=== PATIENT | female | born 1965 | race Caucasian/White ===

== ENCOUNTER 2020-07-13 13:19 | Day surgery (SDC) | payer MEDICAID ==
[2020-07-13 15:06] LABS: BASOPHILS % (AUTO) 0.3 %; EOSINOPHILS % (AUTO) 0.1 %; HGB - HEMOGLOBIN 13.8 g/dL (12.0-16.0); LYMPHOCYTES # (AUTO) 0.5 10^3/uL (1.5-3.5); LYMPHOCYTES % (AUTO) 3.2 %; MEAN CORPUSCULAR HEMOGLOBIN 32.1 pg (27.0-31.0); MEAN CORPUSCULAR HGB CONC 34.4 g/dL (32.0-36.0); MEAN CORPUSCULAR VOLUME 93.3 fL (81.0-99.0); MEAN PLATELET VOLUME 9.9 fL (7.9-10.8); MONOCYTES # (AUTO) 0.7 10^3/uL (0.0-1.0); MONOCYTES % (AUTO) 4.5 %; NEUTROPHILS # (AUTO) 13.2 10^3/uL (1.5-6.6); NEUTROPHILS % (AUTO) 91.2 %; PLT - PLATELET COUNT 229 10^3/uL (130-450); RED CELL DISTRIBUTION WIDTH 12.1 % (12.0-15.0); WHITE BLOOD COUNT 14.5 x10^3/uL (4.8-10.8)
[2020-07-13 15:22] LABS: ALBUMIN 4.7 g/dL (3.2-5.5); ALBUMIN/GLOBULIN RATIO 1.3 (1.0-2.2); BILIRUBIN,TOTAL 1.9 mg/dL (0.2-1.0); CALCIUM 9.4 mg/dL (8.5-10.3); CREATININE 0.8 mg/dL (0.4-1.0); TOTAL PROTEIN 8.3 g/dL (6.7-8.2)
[2020-07-13] MEDS ORDERED: HYDROmorphone 1 MG/ML CARPUJECT IVP STA ×3 (16:16→19:50)
[2020-07-13] MEDS ORDERED: SODIUM CHLORIDE 0.9% 1,000 ML IV STA (16:16)
--- NOTE | 2020-07-13 16:24 | ED Physician Documentation ---
History of Present Illness - Stated complaint Stated Complaint: ABD PAIN, VOMITING - Chief complaint Chief Complaint: Abd Pain - History obtained from History obtained from: Patient - Additonal information Additional information: 55-year-old female presents to the emergency department for evaluation of acute onset right lower quadrant abdominal pain with associated vomiting. Began this morning when she woke up. She denies that the pain radiates. She has no flank pain hematuria or dysuria. She does have some rebound guarding and tenderness. It should be noted that patient denies any history of coronary artery disease. However she does have anginal-like symptoms secondary to enlarged cardiac muscle that can sometimes cause compression of the left anterior descending artery. She reports a coronany cath was clear. She denies any chest pain at this time Past surgical history includes left oophorectomy, intussusception and bilateral breast implants Past medical history unremarkable. Meds none Social: No tobacco infrequent EtOH Review of Systems Constitutional: denies: Fever, Chills Eyes: reports: Reviewed and negative Ears: reports: Reviewed and negative Nose: reports: Reviewed and negative Throat: reports: Reviewed and negative Cardiac: reports: Reviewed and negative Respiratory: reports: Reviewed and negative GI: reports: Abdominal Pain, Nausea, Vomiting. denies: Constipation, Diarrhea, Hematemesis : denies: Dysuria, Frequency, Hesitancy, Hematuria Skin: reports: Reviewed and negative Musculoskeletal: reports: Reviewed and negative Neurologic: reports: Reviewed and negative Psychiatric: reports: Reviewed and negative PD PAST MEDICAL HISTORY - Present Medications Home Medications: Ambulatory Orders Medication Instructions Recorded Confirmed No Known Home Medications 07/13/20 07/13/20 - Allergies Allergies/Adverse Reactions: Allergies Allergy/AdvReac Type Severity Reaction Status Date / Time No Known Drug Allergies Allergy Verified 07/13/20 13:31 PD ED PE EXPANDED - General General: Alert, No acute distress, Well developed/nourished - Neck Neck: Supple w/out meningeal sx. No: Stiff neck, Brudzinki's - Cardiac Cardiac: Regular Rate, Regular Rhythm, Radial strong equal, Pedal strong equal, Cap refill < 2 sec. No: Murmur Present - Respiratory Respiratory: Clear to ausultation vane. No: Distress, Labored - Abdomen Abdomen: Normal Bowel sounds, Tender to palpation, Rebound, Guarding, RLQ (Rebound tenderness right lower quadrant. Positive McBurney's. Positive psoas.) - Extremities Extremities: Normal - Neuro Neuro: Alert and Oriented X 3 Results - Vitals Vitals: Vital Signs - 24 hr 07/13/20 13:24 Temperature 36.8 C Heart Rate 109 H Respiratory 18 Rate Blood Pressure 114/48 L O2 Saturation 100 Oxygen O2 Source Room air - EKG (time done) 1649 Rate: Rate (enter#) (85) Rhythm: NSR [place]: Normal Intervals: Normal [place] QRS: Normal Ischemia: Non specific changes Compare to prior EKG: Old EKG unavailable Computer interpretation: Agree with computer - Labs Labs: Laboratory Tests 07/13/20 07/13/20 07/13/20 15:02 15:02 16:22 WBC 14.5 H RBC 4.30 Hgb 13.8 Hct 40.1 MCV 93.3 MCH 32.1 H MCHC 34.4 RDW 12.1 Plt Count 229 MPV 9.9 Neut # (Auto) 13.2 H Lymph # (Auto) 0.5 L Placer # (Auto) 0.7 Eos # (Auto) 0.0 Baso # (Auto) 0.0 Absolute Nucleated RBC 0.00 Nucleated RBC % 0.0 Sodium 137 Potassium 3.7 Chloride 102 Carbon Dioxide 25 Anion Gap 10.0 BUN 17 Creatinine 0.8 Estimated GFR (MDRD) 75 L Glucose 146 H Calcium 9.4 Total Bilirubin 1.9 H AST 25 ALT 25 Alkaline Phosphatase 70 Total Protein 8.3 H Albumin 4.7 Globulin 3.6 Albumin/Globulin Ratio 1.3 Lipase 26 Urine Color Urine Clarity Urine pH Ur Specific [place] 1.025 Urine Protein Urine Glucose (UA) Urine Ketones Urine Occult Blood Urine Nitrite Urine Bilirubin Urine Urobilinogen Ur Leukocyte Esterase Ur Microscopic Review Urine Culture Comments Urine HCG, Qual NEGATIVE 07/13/20 16:22 WBC RBC Hgb Hct MCV MCH MCHC RDW Plt Count MPV Neut # (Auto) Lymph # (Auto) Placer # (Auto) Eos # (Auto) Baso # (Auto) Absolute Nucleated RBC Nucleated RBC % Sodium Potassium Chloride Carbon Dioxide Anion Gap BUN Creatinine Estimated GFR (MDRD) Glucose Calcium Total Bilirubin AST ALT Alkaline Phosphatase Total Protein Albumin Globulin Albumin/Globulin Ratio Lipase Urine Color YELLOW Urine Clarity CLEAR Urine pH 6.0 Ur Specific [place] 1.025 Urine Protein NEGATIVE Urine Glucose (UA) NEGATIVE Urine Ketones 40 H Urine Occult Blood TRACE-INTA Urine Nitrite NEGATIVE Urine Bilirubin NEGATIVE Urine Urobilinogen 0.2 (NORMAL) Ur Leukocyte Esterase NEGATIVE Ur Microscopic Review NOT INDICATED Urine Culture Comments NOT INDICATED Urine HCG, Qual - Rads (name of study) CT abd Radiology: Final report received (Acute appendicitis. Appendix is quite dilated with likely impending rupture) PD MEDICAL DECISION MAKING - ED course Complexity details: reviewed results, re-evaluated patient, considered differential, d/w patient ED course: 55-year-old female presents the emergency department for evaluation of acute right lower quadrant abdominal pain that began this a.m. She has associated vomiting. 1710: Notified by radiologist that CT scan shows acute appendicitis with impending rupture. I spoke with Dr. Crowley on-call for surgery. He will be at the bedside shortly. Have ordered 3 g of Unasyn. Patient is n.p.o. Further IV pain medication ordered 1740: Dr. Crowley of surgery is at the bedside. Further care to be dictated by surgical team. Patient will be admitted to same-day surgery Departure - Departure Disposition: ED Transfer to [facility] Clinical Impression: Acute appendicitis Qualifiers: Acute appendicitis type: unspecified acute appendicitis type Qualified Code(s): K35.80 - Unspecified acute appendicitis
[2020-07-13] MEDS ORDERED: IOVERSOL 320 100 ML VIAL IVP ONE ×2 (16:32→17:04)
[2020-07-13 16:45] LABS: BILIRUBIN,URINE NEGATIVE (NEGATIVE); CLARITY,URINE CLEAR (CLEAR); GLUCOSE, URINE (UA) NEGATIVE (NEGATIVE); HCG UR QUAL NEGATIVE; KETONES,URINE (UA) 40 mg/dL (NEGATIVE); LEUKOCYTE ESTERASE, URINE NEGATIVE (NEGATIVE); NITRITE,URINE NEGATIVE (NEGATIVE); OCCULT BLOOD,URINE TRACE-INTA (NEGATIVE); PROTEIN,URINE NEGATIVE (NEGATIVE); UROBILINOGEN,URINE 0.2 (NORMAL) E.U./dL (NORMAL)
--- NOTE | 2020-07-13 17:08 | CT Report ---
PROCEDURE: Abdomen/Pelvis W INDICATIONS: Acute focal RLQ abd pain CONTRAST: IV CONTRAST: Optiray 320 ml: 100 PO CONTRAST: *NO PO CONTRAST TECHNIQUE: After the administration of intravenous contrast, 5 mm thick sections acquired from the diaphragms to the symphysis. 5 mm thick coronal and sagittal reformats were acquired. For radiation dose reducti on, the following was used: automated exposure control, adjustment of mA and/or kV according to shanna ent size. COMPARISON: None. FINDINGS: Image quality: Excellent. ABDOMEN: Lung bases: Lung bases are clear. Heart size is normal. Solid organs: Liver and spleen are normal in size and enhancement. Gallbladder is unremarkable Parker iary system is non dilated. Pancreas enhances normally. No adrenal nodules. Kidneys demonstrate no rmal size and enhancement, without hydronephrosis. Peritoneum and bowel: Appendix is markedly dilated and predominantly filled with fluid with mild infl ammatory change adjacent to the appendix. The appendix measures 1.4 cm in diameter. Findings are cons istent with acute appendicitis. Bowel loops otherwise demonstrate normal wall thickness and caliber. No free fluid or air. Nodes and vessels: No retroperitoneal or mesenteric adenopathy by size criteria. Aorta and inferior vena cava are normal in size. Miscellaneous: No ventral hernias. PELVIS: Genitourinary: Bladder wall thickness is normal. Miscellaneous: No inguinal hernias or adenopathy. Bones: No suspicious bony lesions. No vertebral body compression fractures. IMPRESSION: 1. Acute appendicitis. Appendix is quite dilated, with likely impending rupture. Above discussed with GIDEON GARCIA at the time of dictation on 07/13/2020 at 1706 hours. Reviewed by: Bhupinder Joya MD on 07/13/2020 5:06 PM PST Approved by: Bhupinder Joya MD on 07/13/2020 5:06 PM PST Station ID: [id number]
[2020-07-13] MEDS ORDERED: AMPICILLIN/SULBACTAM 3 GM in SODIUM CHLORIDE 0.9% MINIBAG 100 ML IV STA (17:10)
--- NOTE | 2020-07-13 19:16 | SURGERY HX AND PHYSICAL(T) ---
Surgical History & Physical - Chief Complaint/HPI Chief Complaint: Abdominal pain, concern for acute appendicitis History of Present Illness: 55-year-old female with past surgical history significant for ovarian cystectomy versus oophorectomy who presents with 12-hour history of periumbilical pain migrating to the right lower quadrant. Associated nausea with multiple episodes of emesis. No diarrhea. No sick contacts. No personal or family history of inflammatory bowel disease either Crohn's disease nor ulcerative colitis. Colonoscopy as per age appropriate screening which was within normal limits. No other significant comorbid states. CT scan obtained and consistent with appendicitis. Surgical consultation called. - PMH/PSH/Social Hx Does the pt have a hx of MRSA?: No Neurological History: None Eyes, Ears, Nose, Throat: None Cardiovascular: None Respiratory: None Skin: Other drug resistant infections Endocrine/Autoimmune: HyPERthyroidism Gastrointestinal: None FRONT DESK AUXILIARY: None Urinary: None Musculoskeletal: None Blood Disorders: None Psychiatric: None Smoking Status: Never smoker - Home Meds and Allergies Home Medications: No Known Home Medications 07/13/20 Allergies/Adverse Reactions: Allergies Allergy/AdvReac Type Severity Reaction Status Date / Time No Known Drug Allergies Allergy Verified 07/13/20 13:31 - Review of Systems Constitutional: Fatigue, Fever Gastrointestinal: Nausea, Vomiting, Abdominal pain. No: Flatus, Constipation, Diarrhea, Melena, Hematochechezia - Vital Signs Heart Rate: 109 Blood Pressure: 114/48 Temperature: 36.8 C Respiratory Rate: 18 O2 Saturation: 100 Weight (kg): 61.235 kg Height: 1.68 m - Physical Exam General Appearance: positive: No acute distress, Alert, Mild distress Eyes Bilatera: positive: Normal inspection, PERRL, EOMI ENT: positive: ENT inspection nml Neck: positive: Nml inspection Respiratory: positive: Chest non-tender, No respiratory distress, Breath sounds nml Cardiovascular: positive: Regular rate & rhythm Abdomen: positive: Tenderness, Guarding, Rebound, Other (Right lower quadrant tenderness to palpation with localized rebound and guarding.) Back: positive: Nml inspection Skin: positive: Color nml Extremities: positive: Non-tender, Full ROM, Nml appearance Neurologic/Psychiatric: positive: Oriented x3, CN's nml (2-12), Motor nml, Sensation nml, Mood/affect nml - Patient Review Patient Review: Problems were reviewed with the patient during this visit. Medications were reviewed with the patient during this visit. Allergies were reviewed this patient during this visit. Pertinent Tests Reviewed: All pertitent test for this patient were reviewed. - Assessment & Plan Assessment and Plan: 55-year-old female presenting with acute appendicitis with no comorbid states, past history of ovarian cystectomy. Leukocytosis to 14.5, CT consistent with acute appendicitis. Plan going forward is as follows: 1. Bowel rest, IV fluid resuscitation, IV antibiotics. 2. Preoperative chest x-ray, preoperative EKG, labs evaluated. 3. Planned diagnostic laparoscopy, laparoscopic appendectomy, other indicated procedures. Patient counseled of the risk associated with operative intervention including but not limited to conversion to open procedure, injury to local structures, and anesthesia risks of heart attack, stroke, . 4. Postoperative care under observation status with continued IV antibiotics.
--- NOTE | 2020-07-13 20:52 | ANESTHESIA ---
Pre-Anesthesia VS, & Labs - Diagnosis acute appendicitis - Procedure lap appy Vital Signs: Temp Pulse Resp BP Pulse Ox 36.8 C 92 18 96/49 L 100 07/13/20 19:27 07/13/20 20:30 07/13/20 20:30 07/13/20 20:30 07/13/20 20:30 Height: 5 ft 6 in Weight (kg): 61.235 kg Body Mass Index: 21.7 BMI Classification: Healthy weight - NPO >8 hours - Is Patient ?: No - Lab Results Current Lab Results: Laboratory Tests 07/13/20 15:02: Sodium 137, Potassium 3.7, Chloride 102, Carbon Dioxide 25, Anion Gap 10.0, BUN 17, Creatinine 0.8, Estimated GFR (MDRD) 75 L, Glucose 146 H , Calcium 9.4, Total Bilirubin 1.9 H, AST 25, ALT 25, Alkaline Phosphatase 70, Total Protein 8.3 H, Albumin 4.7, Globulin 3.6, Albumin/Globulin Ratio 1.3, Lipase 26 07/13/20 15:02: WBC 14.5 H, RBC 4.30, Hgb 13.8, Hct 40.1, MCV 93.3, MCH 32.1 H, MCHC 34.4, RDW 12.1, Plt Count 229, MPV 9.9, Neut # (Auto) 13.2 H, Lymph # (Auto) 0.5 L, [place] # (Auto) 0.7, Eos # (Auto) 0.0, Baso # (Auto) 0.0, Absolute Nucleated RBC 0.00, Nucleated RBC % 0.0 Fish Bones: 07/13/20 15:02 07/13/20 15:02 Home Medications and Allergies Home Medications: Ambulatory Orders No Known Home Medications 07/13/20 No Known Home Medications 07/13/20 Allergies/Adverse Reactions: Allergies Allergy/AdvReac Type Severity Reaction Status Date / Time No Known Drug Allergies Allergy Verified 07/13/20 13:31 Anes History & Medical History - Anesthetic History Anesthesia Complications: reports: No previous complications - Medical History Cardiovascular: reports: Other (History of PSVT and myocardial bridging. no episodes for several years) Pulmonary: reports: None Gastrointestinal: reports: None Urinary: reports: None Neuro: reports: None Musculoskeletal: reports: None Endocrine/Autoimmune: reports: HyPOthyroidism (questionable hashimotos) Blood Disorders: reports: None Skin: reports: Other drug resistant infections Smoking Status: Never smoker Psychosocial: reports: Alcohol (3 glasses of wine per week) History of Cancer?: No - Surgical History Gynecologic: Oophrectomy (left) Orthopedic: Rotator cuff repair (right) Exam General: Alert, Oriented x3, Cooperative, No acute distress Dental: WNL Mouth Openin Fingerbreadth Neck Mobility: Reduced Mallampati classification: II Thyromental Distance: 4-6 cm Mental/Cognitive Status: Alert/Oriented X3, Normal for patient Plan Anesthesia Type: General, Transverse Abdominis Plane (TAP) Block (possible) Regional Block: Per Surgeon's request for Post Op pain control Consent for Procedure(s) Verified and Reviewed: Yes Code Status: Attempt Resuscitation ASA classification: 2-Mild systemic disease Is this case an emergency?: Yes
[2020-07-13] MEDS ORDERED: LIDOCAINE 1%-EPI 1:100000 30 ML MDV SUBQ ONE ×2 (20:58)
[2020-07-13] MEDS ORDERED: BUPIVACAINE 0.5% PF 30 ML VIAL SUBQ ONE ×2 (20:58)
[2020-07-13] MEDS ORDERED: LACTATED RINGERS 1,000 ML IV SCH (21:00)
[2020-07-13] MEDS ORDERED: ATROPINE ABBOJECT 1 MG/10 ML SYRINGE IVP PRN (21:00)
[2020-07-13] MEDS ORDERED: ePHEDrine 50 MG/ML VIAL IVP PRN (21:00)
[2020-07-13] MEDS ORDERED: fentaNYL 100 MCG/2 ML VIAL IVP PRN (21:00)
[2020-07-13] MEDS ORDERED: MORPHINE 2 MG/ML CARPUJECT IVP PRN (21:00)
[2020-07-13] MEDS ORDERED: ONDANSETRON 4 MG/2 ML VIAL IVP PRN ×2 (21:00→22:59)
[2020-07-13] MEDS ORDERED: NALOXONE 0.4 MG/ML VIAL IVP PRN (21:00)
[2020-07-13] MEDS ORDERED: HYDROmorphone 0.5 MG/0.5 ML SYRINGE IVP PRN (21:00)
[2020-07-13] MEDS ORDERED: METOCLOPRAMIDE 10 MG/2 ML VIAL IVP PRN (21:00)
[2020-07-13] MEDS ORDERED: LIDOCAINE 1%-EPI 1:100000 20 ML MDV ONE (21:22)
[2020-07-13] MEDS ORDERED: BUPIVACAINE 0.5% PF 30 ML VIAL ONE (21:22)
[2020-07-13] MEDS ORDERED: GLYCOPYRROLATE 1 MG/5 ML VIAL IVP ONE (21:23)
[2020-07-13] MEDS ORDERED: NEOSTIGMINE 1 MG/1 ML 10 ML MDV IVP ONE (21:23)
[2020-07-13] MEDS ORDERED: DEXAMETHASONE 4 MG/ML VIAL IVP ONE (21:23)
[2020-07-13] MEDS ORDERED: fentaNYL 100 MCG/2 ML VIAL IVP ONE (21:23)
[2020-07-13] MEDS ORDERED: ACETAMINOPHEN 1,000 MG/100 ML 100 ML IV ONE (21:23)
[2020-07-13] MEDS ORDERED: KETOROLAC 30 MG/ML VIAL IVP ONE (21:23)
[2020-07-13] MEDS ORDERED: ONDANSETRON 4 MG/2 ML VIAL IVP ONE (21:23)
[2020-07-13] MEDS ORDERED: PROPOFOL 200 MG/20 ML VIAL IVP ONE (21:23)
[2020-07-13] MEDS ORDERED: MIDAZOLAM 2 MG/2 ML VIAL IVP ONE (21:23)
[2020-07-13] MEDS ORDERED: ROCURONIUM 50 MG/5 ML VIAL IVP ONE (21:23)
[2020-07-13] MEDS ORDERED: LACTATED RINGERS 800 ML IV ONE (22:34)
[2020-07-13] MEDS ORDERED: oxyCODONE 5 MG TABLET PO PRN (22:59)
--- NOTE | 2020-07-13 23:25 | OPERATIVE REPORT ---
Operative Report - General Procedure Date: 07/13/20 Planned Procedure: 1. Diagnostic laparoscopy 2. Laparoscopic appendectomy 3. Extensive lysis of adhesions 4. Abdominal washout 5. Open umbilical hernia repair Pre-Op Diagnosis: Acute appendicitis; Abd pain Procedure Performed: 1. Diagnostic laparoscopy 2. Laparoscopic appendectomy 3. Extensive lysis of adhesions 4. Abdominal washout 5. Open umbilical hernia repair Post Op Diagnosis: Same; Suppurative, nonperforated appendicits - Procedure Note Primary Surgeon: Keo Secondary Surgeon: Lisa Anesthesia Provider: Georgie Anesthesia Technique: General ET tube, Local Pathology: Appendix Estimated Blood Loss (mL): 15 Indications: Acute appendicits Findings: Nonperforated, suppurative appendicits Complications: None - Other Other Information/Narrative: Operative report pending.
--- NOTE | 2020-07-13 23:42 | ANESTHESIA POST OP EVALUATION ---
Anesthesia Post Eval - Post Anesthesia Eval Vitals: Last Vital Signs Temp 37 C 07/13/20 23:05 Pulse 74 07/13/20 23:05 Resp 14 07/13/20 23:05 BP 97/50 L 07/13/20 23:05 Pulse Ox 92 07/13/20 23:05 CV Function Including HR & BP: positive: Stable Pain Control: positive: Satisfactory Nausea & Vomiting: positive: Negative Mental Status: positive: Baseline Respiratory Status: Airway Patent Hydration Status: Satisfactory Anesthesia Complications: positive: None
[2020-07-14] MEDS ORDERED: PIPERACILLIN/TAZOBACTAM 3.375 GM in SODIUM CHLORIDE 0.9% MINIBAG 100 ML IV ONE ×2
[2020-07-14] MEDS ORDERED: PIPERACILLIN/TAZOBACTAM 3.375 GM in SODIUM CHLORIDE 0.9% MINIBAG 100 ML IV SCH (04:00)
[2020-07-14 08:35] VITALS: BP 73/31
== END 2020-07-14 14:08 | disposition home or self-care (01) ==
LOC: ED 13:19 → SDS 18:50 → MS2 23:00 → OBS 23:00 → SDS 07-14 14:08
PROVIDERS: ATTEND Surgery
PROC: 0DTJ4ZZ Resection of Appendix, Percutaneous Endoscopic Approach (ICD-10-PCS; principal; 2020-07-13 18:26)
DX: K35.80 Unspecified acute appendicitis (principal); K42.9 Umbilical hernia without obstruction or gangrene
CPT/HCPCS: 36415; 44970; 74177; 80053; 81003; 81025; 83690; 85025; 93005; 96365; 96375; 96376; 99284; 99285; J0131; J1170; J7120; Q9967; 81001; 87086

== ENCOUNTER 2021-01-21 13:02 | Outpatient (CLI) | payer MEDICAID ==
--- NOTE | 2021-01-24 09:50 | Mammography Report ---
BILATERAL DIGITAL SCREENING MAMMOGRAM 3D/2D WITH AUGMENTATION: 01/21/2021 CLINICAL: Patient presents for routine screening. S/P bilateral augmentation. No prior exams were available for comparison. The tissue of both breasts is heterogeneously dense. T his may lower the sensitivity of mammography. Bilateral breast implants are present. No significant masses, calcifications, or other findings are seen in either breast. IMPRESSION: NEGATIVE There is no mammographic evidence of malignancy. A 1 year screening mammogram is recommended. This exam was interpreted at Station ID: [id number]. NOTE: For mammograms, a report in lay terms will be sent to the patient. Approximately 15% of breast malignancies will not be visualized mammographically. In the management of a palpable breast mass, a negative mammogram must not discourage biopsy of a clinically suspicious lesion. Electronically Signed By: Rd beverly/yari:01/21/2021 16:16:50 ACR BI-RADS Category 1: Negative 3341F PARENCHYMAL PATTERN: (D) - The breast(s) demonstrate(s) heterogeneously dense fibroglandular juan daniel olivera. BI-RADS CATEGORY: (1) - 1 RECOMMENDATION: (ANNUAL) - Recommend routine annual screening mammography. [id number] 1 year screening LATERALITY: (B)
== END 2021-01-21 13:03 | disposition home or self-care (01) ==
LOC: DI 13:02
DX: Z12.31 Encounter for screening mammogram for malignant neoplasm of breast (principal); Z98.82 Breast implant status

== ENCOUNTER 2021-01-21 13:04 | Outpatient (CLI) | payer MEDICAID ==
--- NOTE | 2021-01-21 16:45 | Ultrasound Report ---
PROCEDURE: Pelvic w/Transvaginal INDICATIONS: ABN UTERINE BLEEDING TECHNIQUE: Real-time scanning was performed of the pelvic organs, with image documentation. Additional endovagi nal scanning was necessary due to incomplete visualization of the adnexal and endometrial structures by transabdominal scanning. COMPARISON: None. FINDINGS: No pathologic free abdominal or pelvic fluid. Uterus: Uterus is normal in size at 9.5 x 5.1 x 5.8 cm. The endometrium measures 4.0 mm in combined thickness. Uterus has heterogeneous appearance. There is a 4.3 x 2.7 x 4.5 cm mid anterior intramura l/submucosal uterine fibroid. Ovaries: Right ovary measures 2.1 x 1.2 x 1.9 cm with a total volume of 2.5 cc. Right ovary is sonog raphically normal. Left ovary is surgically absent. IMPRESSION: 1. 4.3 x 2.7 x 4.5 cm intramural/submucosal uterine fibroid. 2. Right ovary is sonographically normal. 3. Left ovary surgically absent. Reviewed by: Josee Henson MD, PhD on 01/21/2021 4:44 PM PDT Approved by: Josee Henson MD, PhD on 01/21/2021 4:44 PM PDT Station ID: [id number]
== END 2021-01-21 13:05 | disposition home or self-care (01) ==
LOC: DI 13:04
PROVIDERS: ATTEND Obstetrics & Gynecology
DX: D25.1 Intramural leiomyoma of uterus (principal)